=== PATIENT | male | born 1945 | race Caucasian/White ===

== ENCOUNTER 2016-11-12 14:04 | Inpatient (IN) | payer MEDICARE, OTHER ==
[~2016-11-12] VITALS: Ht 177.8 cm; Wt 110.2 kg
[2016-11-13] MEDS ORDERED: CICL8SOL TOPICAL (13:47)
[2016-11-13] MEDS ORDERED: VITA100018 PO (13:47)
[2016-11-13] MEDS ORDERED: DONE10TA7 PO (13:47)
[2016-11-13] MEDS ORDERED: SERT-129 PO (13:47)
[2016-11-13] MEDS ORDERED: MULT1TAB84 PO (13:47)
[2016-11-13] MEDS ORDERED: DICL50TA3 PO (13:47)
[2016-11-13] MEDS ORDERED: CALC1TAB87 PO (13:47)
[2016-11-13] MEDS ORDERED: B-COTAB41 PO (13:47)
[2016-11-13] MEDS ORDERED: RAPA4CAP PO (13:56)
[2016-11-16] MEDS ORDERED: HYDR-3533 PO (10:10)
[2016-12-01] MEDS ORDERED: METOPROLOL TARTRATE 25 MG TAB PO PRN (05:45)
[2016-12-01] MEDS ORDERED: SODIUM CHLORID 0.9% 500 ML IV SCH (05:45)
[2016-12-01] MEDS ORDERED: EXPAREL PERI-ARTICULAR INJECTION (TOTAL VOL. 60 ML) P-ARTICULR SCH ×2 (05:45)
[2016-12-01] MEDS ORDERED: ceFAZolin 2 GM PREMIX 50 ML IV SCH (05:45)
[2016-12-01] MEDS ORDERED: INSULIN HUMAN REGULAR 1,000 UNITS/10 ML VIAL SQ PRN (05:45)
[2016-12-01] MEDS ORDERED: LACTATED RINGER'S 1000 ML IV SCH (05:45)
[2016-12-01] MEDS ORDERED: TRANEXAMIC ACID IV SCH (05:45)
[2016-12-01] MEDS ORDERED: SODIUM CHLORIDE 0.9% IV SCH (05:45)
[2016-12-01] MEDS ORDERED: CHLORHEXIDINE GLUCONATE 4% SOLN 120 ML BTL TOP SCH (05:45)
[2016-12-01] MEDS ORDERED: VANCOMYCIN 1000 MG/NS 250 ML (for <70 kg) IV SCH ×2 (05:45)
[2016-12-01 05:52] VITALS: BP 115/79; PULSE 63; RESP 18; TEMP 98.7; O2SAT 94
[2016-12-01] MEDS ORDERED: GENTAMICIN SULFATE 80 MG/2 ML VIAL ONE (06:09)
[2016-12-01] MEDS ORDERED: DEXAMETHASONE SOD PHOS 4 MG/ML VIAL ONE (06:31)
[2016-12-01] MEDS ORDERED: MIDAZOLAM HCL 2 MG/2 ML VIAL ONE (06:31)
[2016-12-01] MEDS ORDERED: ACETAMINOPHEN 1000 MG/100 ML VIAL IV ONE (06:31)
[2016-12-01] MEDS ORDERED: FAMOTIDINE 20 MG/2 ML VIAL ONE (06:31)
[2016-12-01] MEDS ORDERED: XARE10TA PO (07:41)
[2016-12-01] MEDS ORDERED: WALKER/ADULT/FO1 MIS (07:41)
[2016-12-01] MEDS ORDERED: HYDR-3366 PO (07:41)
--- NOTE | 2016-12-01 07:42 | HHI.FF ---
Face to Face Verification Diagnosis: (1) Status post total hip replacement, right Physical Therapy Gait training Hip: Total hip, Protocol: Right Right LE Weight Bearing: WB as tolerated Nursing Dressing Changes: Daily dressing change, Coverderm/Primapore (begin adding xeroform POD 10) I have seen patient Christian Waters on 12/01/16. My clinical findings support the need for the requested home health care services because: Ltd mobility - disease progression I certify that my clinical findings support that this patient is homebound because: Post-op weakness Earnest Zhang Dec 01, 2016 07:42
[2016-12-01] MEDS ORDERED: NALOXONE HCL 0.4 MG/ML AMP IV PRN (08:45)
[2016-12-01] MEDS ORDERED: MORPHINE SULFATE 4 MG/ML INJ IV PUSH PRN (08:45)
[2016-12-01] MEDS ORDERED: SODIUM CHLORIDE 0.9% FLUSH 5 ML FLUSH IVF PRN (08:45)
[2016-12-01] MEDS ORDERED: ONDANSETRON HCL 4 MG/2 ML VIAL IVP PRN (08:45)
--- NOTE | 2016-12-01 08:48 | PD.OP ---
cc: Baltazar Rush MD Operative Report Date of Surgery: Dec 01, 2016 Preoperative Diagnosis: Severe right hip osteoarthritis Postoperative Diagnosis: Procedure: Right total hip arthroplasty via anterior approach Anesthesia: Gen. Surgeon: Baltazar Rush Nuclear Licensing Engineer(s): REHAN Kate PA-C The surgical procedure was assisted by my physician financial assistant. My P.A. presence was necessary throughout this case for the manipulation and positioning of the surgical extremity. My P.A. was assisting me throughout the duration of this procedure. The skill set of a physician financial assistant was medically necessary to complete this procedure. During the surgical case the registered nurse surgical services was working at the back table and the physician financial assistant was directly assisting me. Operation and Findings: PLAN OF ACTIVITY Weight bear as tolerated. DRAINS: 7-mm REECE drain. IMPLANTS USED DePuy Corail size 12 collared stem with a size [54] Lowell Gription cup and a [36+1.5] ceramic Biolox ceramic head. DETAILS OF PROCEDURE: This patient has a long history of hip pain. Patient was found to have severe osteoarthritis. The patient had radiographic evidence of joint space narrowing with [id number] arthritis and osteophytes around the acetabulum as well as the femoral head. There was also some cystic changes. The patient failed conservative treatment with pain medications, anti-inflammatories, physical therapy, assistive devices including a cane, as well as therapeutic injection of the hip. Patient's hip arthritis was limiting his ability to ambulate and perform activities of daily living. The patient wished to proceed with surgery and informed consent was obtained. Operative site was marked. I discussed both posterior approach and anterior approach with the patient and decision was made for anterior approach. Patient was brought to OR and placed on OR table. IV sedation and general anesthesia was administered by anesthesiologist. Patient positioned on a Annabella table and was given IV antibiotics. Time-out procedure was performed. The hip and thigh were prepped with alcohol followed by Hibiclens. The thigh was draped in the usual sterile fashion. Clean Air Suite was used for this procedure. The procedure began with a 5-inch incision over the anterolateral thigh. Subcutaneous tissue was dissected with Bovie. The fascia over the tensa fasciae latae was incised. Care was taken to avoid injury to the lateral femoral cutaneous nerve. The tensor muscle was retracted laterally. Sartorius was retracted medially. Retractors were now placed. The reflected head of the rectus is now elevated. A capsulotomy was performed over the anterior head capsule. Sutures were placed to help retract the capsule. At this point the femoral head and neck were identified. With soft tissue protected, oscillating saw was used to make a cut through the femoral neck, the femoral head was now removed. At this point attention was turned to preparation of the acetabulum. The labrum was excised. The acetabulum was sequentially reamed up to size []. A Lowell cup was now placed. Fluoroscopy was used to aid in identification of appropriate version. Cup was fully impacted and found to have excellent fit. Hole eliminator was now placed. The liner was now impacted into the cup. At this point the hip was externally rotated. A hook was placed around the proximal femur. The capsule was released off the lateral and medial femur. The hip was now extended and adducted. Retractors were placed around the proximal femur to allow for exposure. A box osteotome was used to remove the lateral cortex of the femoral neck. A broach was used to help lateralize the prosthesis. Canal finder was used to create a path down the canal. Next, the canal was sequentially broached up to size []. This was found to be an excellent fit. Calcar planer was placed. A standard head was placed, hip was reduced. Trial head was now was placed and the hip was found to have excellent stability with good range of motion. The leg lengths were measured under fluoroscopy and found to be equal compared to preoperatively. Trial broach was removed. The Corail stem was opened. Stem was fully impacted into the proximal femur in appropriate version. The femoral head was placed. The hip was again reduced. Fluoroscopy confirmed excellent alignment of prosthesis. The wound was thoroughly irrigated and capsule was closed with #1 Vicryl. The fascia over the tensor fasciae muscle was closed with #1 Vicryl, subcutaneous tissue was closed with 3-0 Vicryl and the skin was closed with carol and Dermabond skin closure. The capsule layers were injected with a mixture of saline and bupivicaine. Dressings were applied. The patient was transferred to Recovery Room in stable condition. Baltazar Rush MD Dec 01, 2016 08:48
[2016-12-01] MEDS: CALCIUM/VITAMIN D 250 MG/125 U TAB PO SCH (09:00)
[2016-12-01] MEDS: SODIUM CHLORIDE 0.9% FLUSH 5 ML FLUSH IVF SCH (09:00)
[2016-12-01] MEDS ORDERED: Post-op Orders (for Pharmacy) MISC XX ONE (09:00)
[2016-12-01] MEDS: DONEPEZIL HCL 5 MG TAB PO SCH (09:00)
[2016-12-01] MEDS ORDERED: DO NOT ADM ANY ANTICOAGULANT DRUGS XX PRN (09:00)
[2016-12-01] MEDS ORDERED: fentaNYL CITRATE 250 MCG/5 ML AMP ONE (09:11)
[2016-12-01] MEDS ORDERED: *morphine SULFATE 8 MG/ML PERIprocedure ONLY ONE (09:25)
[2016-12-01] MEDS: KETOROLAC TROMETHAMINE 30 MG/ML (IVP) VIAL IV PUSH SCH ×2 (09:50→23:35)
[2016-12-01] MEDS ORDERED: TRANEXAMIC ACID INJ 1,000 MG in SODIUM CHLORIDE 0.9% INJ 100 ML IV ONE (10:00)
[2016-12-01] MEDS: LACTATED RINGER'S 1000 ML INJ 1,000 ML IV SCH (10:12)
--- NOTE | 2016-12-01 10:21 | RADRPT ---
EXAM DATE/TIME: 12/01/2016 09:06 [facility] COMPARISON: No previous studies available for comparison. INDICATIONS : Post op right hip surgery. MEDICAL HISTORY : Osteoarthritis. SURGICAL HISTORY : None. ENCOUNTER: Initial ACUITY: 1 day PAIN SCORE: 6/10 LOCATION: Right Hip. FINDINGS: A lateral view of the right hip with AP pelvis was obtained. Right hip arthroplasty. No hardware loos ening or fracture. Post surgical drain and post surgical changes. Mild osteoarthritis left hip. CONCLUSION: Right hip arthroplasty. Esau Mitchell MD on December 01, 2016 at 10:20 Board Certified Radiologist. This report was verified electronically.
[2016-12-01] MEDS: ceFAZolin 2 GM PREMIX 50 ML IV SCH ×2 (12:00→18:25)
[2016-12-01 13:45] VITALS: BP 114/61; PULSE 66; RESP 18; TEMP 97.5; O2SAT 94
[2016-12-01 14:20] VITALS: O2SAT 94
[2016-12-01] MEDS ORDERED: NEOSTIGMINE 3 MG/3 ML SYR IV ONE (14:24)
[2016-12-01] MEDS ORDERED: ePHEDrine/NS 25 MG/5 ML SYR IV ONE (14:24)
[2016-12-01] MEDS ORDERED: LACTATED RINGER'S 1000 ML INJ 1,000 ML IV ONE (14:24)
[2016-12-01] MEDS ORDERED: ONDANSETRON HCL 4 MG/2 ML VIAL IV PUSH ONE (14:24)
[2016-12-01] MEDS ORDERED: PROPOFOL 200 MG/20 ML AMP IV ONE (14:24)
--- NOTE | 2016-12-01 15:05 | RADRPT ---
EXAM DATE/TIME: 12/01/2016 08:24 [facility] COMPARISON: No previous studies available for comparison. INDICATIONS : Right total hip replacement. MEDICAL HISTORY : None. SURGICAL HISTORY : None. ENCOUNTER: Initial ACUITY: 1 day PAIN SCORE: Non-responsive. LOCATION: Right hip. CONCLUSION: Fluoroscopic images are obtained during placement of Right hip prosthesis. Esau Mitchell MD on December 01, 2016 at 15:02 Board Certified Radiologist. This report was verified electronically.
[2016-12-01] MEDS: ACETAMINOPHEN/HYDROcodone 325 MG/10 MG TAB PO PRN ×2 (15:13→21:55)
[2016-12-01 16:00] VITALS: BP 107/65; PULSE 65; RESP 18; TEMP 96.3; O2SAT 96
[2016-12-01 20:00] VITALS: BP 100/61; PULSE 66; RESP 16; TEMP 96.4; O2SAT 94
[2016-12-01 20:27] VITALS: O2SAT 95
[2016-12-01] MEDS: VANCOMYCIN INJ 1,000 MG in SODIUM CHLOR 0.9% 250 ML INJ 250 ML IV SCH (22:02)
[2016-12-02] VITALS (7 sets, daily range): BP systolic 104–118; BP diastolic 57–74; PULSE 56–90; RESP 16–18; TEMP 97.4–98.1; O2SAT 93–94
[2016-12-02] MEDS: ceFAZolin 2 GM PREMIX 50 ML IV SCH (00:55)
[2016-12-02 06:01] LABS: HEMATOCRIT 33.7 % (39.0-51.0); REVIEW FLAG FINAL
[2016-12-02] MEDS: VANCOMYCIN INJ 1,000 MG in SODIUM CHLOR 0.9% 250 ML INJ 250 ML IV SCH (06:12)
--- NOTE | 2016-12-02 07:18 | PD.ORT.PN ---
Subjective Subjective Remarks Pain controlled and doing well Has been able to stand and walk to the bathroom Objective Vitals Vital Signs Date Time Temp Pulse Resp B/P Pulse Ox O2 Delivery O2 Flow Rate FiO2 12/02/16 00:00 98.1 74 16 107/57 94 12/01/16 20:27 95 Nasal Cannula 1.50 12/01/16 20:00 96.4 66 16 100/61 94 12/01/16 16:00 96.3 65 18 107/65 96 12/01/16 14:20 94 Nasal Cannula 2.50 12/01/16 13:45 97.5 66 18 114/61 94 12/01/16 13:00 98.0 66 15 113/66 98 Nasal Cannula 3 12/01/16 12:30 70 15 120/64 97 Nasal Cannula 3 12/01/16 12:00 64 15 120/69 97 Nasal Cannula 3 12/01/16 11:30 67 16 126/79 95 Nasal Cannula 3 12/01/16 11:00 65 17 128/79 95 Nasal Cannula 3 12/01/16 10:45 66 15 130/79 95 Nasal Cannula 3 12/01/16 10:15 64 16 128/79 97 Nasal Cannula 3 12/01/16 10:00 63 17 129/80 97 Nasal Cannula 3 12/01/16 09:45 66 15 136/86 97 Nasal Cannula 3 12/01/16 09:30 86 15 141/77 98 Nasal Cannula 3 12/01/16 09:15 82 14 142/90 98 Nasal Cannula 3 12/01/16 09:05 97.9 82 14 158/89 95 Simple Mask 6 I/O 12/01/16 12/01/16 12/01/16 12/02/16 12/02/16 12/02/16 07:00 15:00 23:00 07:00 15:00 23:00 Intake Total 1000 ml 480 ml Output Total 700 ml 435 ml 50 ml Balance 300 ml 45 ml -50 ml Intake Oral 480 ml Other 1000 ml Output Urine Total 400 ml 325 ml Drainage Total 110 ml 50 ml Estimated Blood Loss 300 ml # Bowel Movements 0 Result Diagram: 12/02/16 0524 Imaging Last 24 hours Impressions Hip and Pelvis X-Ray 12/01/16 0844 Signed Impressions: Service Date/Time: Thursday, December 01, 2016 09:06 - CONCLUSION: Right hip arthroplasty. Esau Mitchell MD Objective Remarks Right lower extremity: Clean dry dressings intact with drain in place. Mild swelling. Distally intact sensation good capillary refills. He has strong dorsiflexion and plantar flexion of foot Assessment & Plan Assessment and Plan Right total hip arthroplasty anterior approach POD 1 Physical therapy weightbearing as tolerated twice a day Discontinue drain Dressings daily Lovenox then convert to Xarelto after discharge Incentive spirometry Case management for home health care for dressing changes and PT Discharge today or tomorrow when pain is controlled and is still deemed safe by PT Follow-up with Dr. Rush or JOY in 2 weeks DOMINGA SANDERS PA-C Dec 02, 2016 07:18
[2016-12-02] MEDS: VITAMIN B COMPLEX/VIT C TAB PO SCH (08:10)
[2016-12-02] MEDS: ENOXAPARIN SODIUM 40 MG/0.4 ML SYRINGE SQ SCH (08:10)
[2016-12-02] MEDS: CHOLECALCIFEROL (VIT D3) 1000 UNIT TAB PO SCH (08:10)
[2016-12-02] MEDS: CALCIUM/VITAMIN D 250 MG/125 U TAB PO SCH (08:11)
[2016-12-02] MEDS: MULTIVITAMINS/MINERALS THERAPEUTIC TAB PO SCH (08:11)
[2016-12-02] MEDS: SERTRALINE HCL 100 MG TAB PO SCH (08:11)
[2016-12-02] MEDS: ACETAMINOPHEN/HYDROcodone 325 MG/10 MG TAB PO PRN ×3 (08:11→20:38)
[2016-12-02] MEDS: DONEPEZIL HCL 5 MG TAB PO SCH (08:11)
[2016-12-02] MEDS: SODIUM CHLORIDE 0.9% FLUSH 5 ML FLUSH IVF SCH ×2 (08:12→20:32)
[2016-12-02] MEDS: LACTATED RINGER'S 1000 ML INJ 1,000 ML IV SCH ×2 (08:15→20:32)
[2016-12-02] MEDS: KETOROLAC TROMETHAMINE 30 MG/ML (IVP) VIAL IV PUSH SCH ×2 (10:58→21:48)
[2016-12-02] MEDS: MAGNESIUM HYDROXIDE SUSP 30 ML CUP PO SCH ×2 (13:08→20:31)
--- NOTE | 2016-12-02 16:32 | OTSOAPIP ---
TIME SESSION COMPLETED: IN AM & PM TREATMENT TIME: 0 MINS. CHART REVIEWED. ATTEMPTED TO SEE FOR OT EVALUATION IN AM AND WAS RECEIVING NURSING CARE; RETURN IN PM AND PT PARTICIPATING IN JOINT CLASS. WILL FOLLOW NEXT DAY. Therapist: ANGEL MERLOS OT/L Signature on file
[2016-12-02] MEDS: DOCUSATE SODIUM 100 MG CAP PO SCH (20:32)
[2016-12-02] MEDS ORDERED: SENNOSIDES 8.6 MG TAB PO SCH (21:00)
[2016-12-03 00:05] VITALS: BP_SYST 109; BP_SYST 115; BP_DIAS 63; BP_DIAS 70; PULSE 55; PULSE 69; RESP 16; TEMP 96.3; TEMP 97.8; O2SAT 95; O2SAT 99
[2016-12-03] MEDS: ACETAMINOPHEN/HYDROcodone 325 MG/10 MG TAB PO PRN ×2 (05:00→08:54)
--- NOTE | 2016-12-03 06:37 | PD.ORT.PN ---
Subjective Subjective Remarks POD 2 s/p right MADAY - anterior -doing well. pain controlled. out of bed on own and ambulating with minimal difficulty Objective Vitals Vital Signs Date Time Temp Pulse Resp B/P Pulse Ox O2 Delivery O2 Flow Rate FiO2 12/03/16 00:05 97.8 55 16 115/70 95 12/02/16 20:45 93 21 12/02/16 20:05 97.9 66 17 116/60 94 12/02/16 16:00 97.4 60 16 118/74 93 12/02/16 08:53 94 Nasal Cannula 2.00 12/02/16 08:24 97.5 56 16 104/69 94 I/O 12/02/16 12/02/16 12/02/16 12/03/16 12/03/16 12/03/16 07:00 15:00 23:00 07:00 15:00 23:00 Intake Total 240 ml 980 ml 1080 ml 480 ml Output Total 50 ml 350 ml 30 ml Balance 190 ml 630 ml 1050 ml 480 ml Intake Oral 240 ml 980 ml 1080 ml 480 ml Output Urine Total 350 ml Drainage Total 50 ml 30 ml # Voids 2 5 3 3 # Bowel Movements 0 0 0 Result Diagram: 12/02/16 0524 Imaging Last 24 hours Impressions Hip and Pelvis X-Ray 12/01/16 0844 Signed Impressions: Service Date/Time: Thursday, December 01, 2016 09:06 - CONCLUSION: Right hip arthroplasty. Esau Mitchell MD Objective Remarks Right lower extremity: Clean dry dressings intact with drain in place. Mild swelling. Distally intact sensation good capillary refills. He has strong dorsiflexion and plantar flexion of foot Assessment & Plan Assessment and Plan 1) Right total hip arthroplasty anterior approach POD 2 Physical therapy weightbearing as tolerated twice a day Dressings daily Lovenox then convert to Xarelto after discharge Incentive spirometry Case management for home health care for dressing changes and PT Discharge today Follow-up with Dr. Rush or PA in 2 weeks Earnest Zhang Dec 03, 2016 06:37
--- NOTE | 2016-12-03 06:46 | HHI.DS ---
Discharge Summary Admission Date Dec 01, 2016 at 05:16 Discharge Date: Dec 03, 2016 Admitting Diagnosis Right hip osteoarthritis Diagnosis: (1) Status post total hip replacement, right Diagnosis: Principal Procedures Right total hip arthroplasty with anterior approach CBC/BMP: 12/02/16 0524 Significant Findings Laboratory Tests Test 12/02/16 05:24 Hemoglobin 11.6 GM/DL (13.0-17.0) Hematocrit 33.7 % (39.0-51.0) PE at Discharge Right lower extremity: Clean dry dressings intact with drain in place. Mild swelling. Distally intact sensation good capillary refills. He has strong dorsiflexion and plantar flexion of foot Hospital Course Patient was admitted from outpatient basis for elective right total hip arthroplasty. He tolerated procedure well was admitted to [address] [place] [address]. He is out of bed on same day of surgery. He was ambulating on postoperative day 2 with minimal discomfort. He was hemodynamically stable, his drain was removed, his pain was controlled and he was ambulating with minimal assistance. He was fit for discharge home. He'll be discharged home today with home health care. He' ll remain weightbearing as tolerated. He will do daily dressing changes with Primapore will begin adding Xeroform on postop day 10. He will follow up in office with Dr. Rush or his PA in 2 weeks Pt Condition on Discharge: Good Discharge Disposition: Disch w/ Home Health Serv Discharge Instructions Diet Instructions: As Tolerated, No Restrictions Activities You Can Perform: Weight Bearing as Tsering Follow up Referrals: Orthopedics - 12/15/16 @ [facility] with Baltazar Rush MD SNF/[facility]/ with [facility] New Medications: Hydrocodone-Acetaminophen (Moran) 10-325 Mg Tab 1 TAB PO Q4H PRN PAIN #60 Ref 0 TAB Rivaroxaban (Xarelto) 10 Mg Tab 10 MG PO DAILY Blood Clot Prevention #14 Ref 0 TAB Walker/Adult/Folding (Walker/Adult/Folding) 1 Mis Mis 1 EA .ROUTE DIRECTED #1 Ref 0 EA Continued Medications: B-Complex Vitamins (Vitamin B-Complex) 1 Tab 1 TAB PO DAILY Calcium Carbonate-Cholecalciferol (Calcium 600 with Vitamin D) 600-400 mg-Unit Tab 1 TAB PO DAILY Calcium Supplement Ref 0 TAB Cholecalciferol (Vitamin D3) 1,000 Unit Tab 1000 UNITS PO DAILY Nutritional Supplement #1 Ref 0 BOTTLE Ciclopirox (Nail Lacquer) Topical (Ciclopirox (Nail Lacquer) Topical) 8% Soln 1 APPLIC TOPICAL DAILY FUNGAL INFECTION #1 Ref 0 BOTTLE Donepezil (Donepezil) 10 Mg Tab 10 MG PO DAILY Dementia #30 Ref 0 TAB Multiple Vitamins W/ Minerals (Multivitamin Adults) 1 Tab 1 TAB PO DAILY Nutritional Supplement Ref 0 TAB Sertraline (Sertraline) 100 Mg Tab 100 MG PO DAILY #30 Ref 0 TAB Silodosin (Rapaflo) 4 Mg Cap Unknown Dose PO HS Manage Prostate Problems #30 Ref 0 CAP Discontinued Medications: Diclofenac Sodium DR (Diclofenac Sodium DR) 50 Mg Tabdr 50 MG PO BID PRN PAIN SCALE 1 TO 10 #60 Ref 0 TAB Hydrocodone-Acetaminophen (Lortab) 5-325 Mg Tab 1 TAB PO Q6H PRN PAIN #30 Ref 0 TAB Earnest Zhang Dec 03, 2016 06:46
[2016-12-03 08:30] VITALS: BP 110/69; PULSE 59; RESP 16; TEMP 98.7; O2SAT 92
[2016-12-03] MEDS: ENOXAPARIN SODIUM 40 MG/0.4 ML SYRINGE SQ SCH (08:53)
[2016-12-03] MEDS: MAGNESIUM HYDROXIDE SUSP 30 ML CUP PO SCH (08:53)
[2016-12-03] MEDS: CALCIUM/VITAMIN D 250 MG/125 U TAB PO SCH (08:53)
[2016-12-03] MEDS: CHOLECALCIFEROL (VIT D3) 1000 UNIT TAB PO SCH (08:53)
[2016-12-03] MEDS: MULTIVITAMINS/MINERALS THERAPEUTIC TAB PO SCH (08:53)
[2016-12-03] MEDS: VITAMIN B COMPLEX/VIT C TAB PO SCH (08:53)
[2016-12-03] MEDS: SERTRALINE HCL 100 MG TAB PO SCH (08:54)
[2016-12-03] MEDS: SODIUM CHLORIDE 0.9% FLUSH 5 ML FLUSH IVF SCH (08:55)
[2016-12-03] MEDS: DOCUSATE SODIUM 100 MG CAP PO SCH (08:55)
[2016-12-03] MEDS: DONEPEZIL HCL 5 MG TAB PO SCH (08:55)
[2016-12-03 09:35] VITALS: O2SAT 94
--- NOTE | 2016-12-04 08:35 | OTSOAPIP ---
TIME SESSION COMPLETED: 1100 TREATMENT TIME: 0 MINS. CHART REVIEWED. THIS NOTE LATE CHARTED FOR 12/03/16. ATTEMPTED TO SEE FOR OT EVALUATION AND PT HAD BEEN DISCHARGED. : Therapist: ANGEL MERLOS OT/L Signature on file
[2016-12-30] MEDS ORDERED: MIRA50TA PO (15:36)
== END 2016-12-03 10:46 | disposition home health service (06) | DRG 470 ==
LOC: HSDI 12-01 05:16 → N06B 12-01 13:45
PROVIDERS: ADMIT Orthopaedic Surgery Orthopaedic Trauma; ATTEND Orthopaedic Surgery Orthopaedic Trauma
PROC: 0SR903A Replacement of Right Hip Joint with Ceramic Synthetic Substitute, Uncemented, Open Approach (ICD-10-PCS; principal; 2016-12-01 06:35)
DX: M16.11 Unilateral primary osteoarthritis, right hip (principal)
CPT/HCPCS: 73501; 73502; 76000; 85014; 85018; 86850; 86900; 86901; C1776; C9290; J0131; J0690; J1100; J1580; J1650; J1885; J2250; J2270; J2405; J2710; J3010; J3370; J7050; J7120; L1830

== ENCOUNTER → 2016-11-13 | Outpatient (CLI) | payer MEDICARE, OTHER ==
[~2016-11-13] MED LIST: B COTAB3 PO; B-COTAB41 PO; CALC1TAB87 PO; CALCCHW25 PO; CICL8SOL TOPICAL; DICL50TA3 PO; DONE10TA7 PO; FISHCAP PO; HYDR-3366 PO; HYDR-3533 PO; MIRA50TA PO; MULT1TAB PO; MULT1TAB84 PO; RAPA4CAP PO; SERT-129 PO; VIAG50TA PO; VITA100018 PO; WALKER/ADULT/FO1 MIS; XARE10TA PO
[2016-11-13 13:49] LABS: AUTOMATED NEUTROPHIL # 4.3 TH/MM3 (1.8-7.7); BASOPHIL # 0.1 TH/MM3 (0-0.2); BASOPHIL % 0.8 % (0.0-2.0); EOSINOPHIL # 0.1 TH/MM3 (0-0.4); EOSINOPHIL % 2.1 % (0.0-4.0); HEMATOCRIT 40.7 % (39.0-51.0); HEMO FLAGS DIFF FINAL; LYMPH % 30.3 % (9.0-44.0); LYMPHOCYTE # 2.1 TH/MM3 (1.0-4.8); MEAN CELL VOLUME 84.6 FL (80.0-100.0); MEAN CORPUSCULAR HEMOGLOBIN 29.6 PG (27.0-34.0); MONO % 5.5 % (0.0-8.0); NEUT % 61.3 % (16.0-70.0); PLATELET COUNT 227 TH/MM3 (150-450); RED BLOOD COUNT 4.82 MIL/MM3 (4.50-5.90); RED CELL DISTRIBUTION WIDTH 13.9 % (11.6-17.2)
[2016-11-13 13:54] LABS: APTT (PATIENT) 29.8 SEC (24.3-30.1); PROTHROMBIN TIME - PATIENT 10.8 SEC (9.8-11.6)
[2016-11-13 14:16] LABS: BICARBONATE 30.6 MEQ/L (21.0-32.0); POTASSIUM 3.8 MEQ/L (3.5-5.1)
[2016-11-13 15:06] LABS: BLOOD, URINE NEG (NEG); COMMENT (UR) CULT NOT INDICATED; CULTURE IF INDICATED CULT NOT INDICATED; GLUCOSE,URINE NEG (NEG); KETONE, URINE NEG (NEG); MUCUS URINE FEW /lpf (OCC); NITRITE,URINE NEG (NEG); PH, URINE 5.5 (5.0-8.5); SQUAMOUS EPITHELIAL CELL URINE <1 /hpf (0-5); URINE COLOR YELLOW (YELLW/STRAW)
--- NOTE | 2016-11-14 15:49 | EKG ---
Date Performed: 11/13/2016 Time Performed: 13:34:03 PTAGE: 71 years EKG: SINUS BRADYCARDIA BORDERLINE ECG NO PREVIOUS TRACING DOCTOR: Alec Newby Interpretating Date/Time 11/14/2016 15:47:28
== END ==
LOC: CPRE 13:03
PROVIDERS: ATTEND Orthopaedic Surgery Orthopaedic Trauma
DX: Z01.810 Encounter for preprocedural cardiovascular examination (principal); M79.609 Pain in unspecified limb; Z01.812 Encounter for preprocedural laboratory examination; Z79.01 Long term (current) use of anticoagulants; Z13.9 Encounter for screening, unspecified; Z96.60 Presence of unspecified orthopedic joint implant
CPT/HCPCS: 36415; 80048; 81001; 85025; 85610; 85730; 93005